=== PATIENT | female | born 1995 | race Caucasian/White ===

== ENCOUNTER 2021-08-29 07:47 | Emergency (ER) | payer BC ==
[~2021-08-29] VITALS: Ht 165.1 cm; Wt 106.8 kg
[2021-08-29 08:39] LABS: BILIRUBIN,URINE NEGATIVE (NEG); COLOR,URINE YELLOW; NITRITE,URINE POSITIVE (NEG); PH,URINE 7.5 (<5.0-8.0); PROTEIN,URINE NEGATIVE (NEG-TRACE); UROBILINOGEN,URINE 0.2 mg/dL (0.2 mg/dL)
--- NOTE | 2021-08-29 08:44 | PHYS DOC ---
Past Medical History Past Surgical History: No Surgical History General Adult EDM: Chief Complaint: BACK PAIN OR INJURY HPI: HPI: Patient is a 26 year old female who is 7 weeks , presented to ER for evaluation of right-sided lower back pain. Patient denies any injury. 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 Patient states she is 7 weeks , her last menstrual period was on 07/09/2021. This is her first . Patient denies any pelvic pain, no vaginal bleeding or discharge. Patient states she did a home test and it was positive so she went to the health department and they did another one to confirm it. Patient denies any bowel bladder incontinence. Review of Systems: Review of Systems: Constitutional: Denies fever or chills. [] Eyes: Denies change in visual acuity. [] HENT: Denies nasal congestion or sore throat. [] Respiratory: Denies cough or shortness of breath. [] Cardiovascular: Denies chest pain or edema. [] GI: Denies abdominal pain, nausea, vomiting, bloody stools or diarrhea. [] : Denies dysuria. [] Musculoskeletal: Positive for low back pain, no joint pain, Integument: Denies rash. [] Neurologic: Denies headache, focal weakness or sensory changes. [] Endocrine: Denies polyuria or polydipsia. [] Lymphatic: Denies swollen glands. [] Psychiatric: Denies depression or anxiety. [] Heart Score: C/O Chest Pain: N/A Risk Factors: Risk Factors: DM, Current or recent (<one month) smoker, HTN, HLP, family history of CAD, obesity. Risk Scores: Score 0 - 3: 2.5% MACE over next 6 weeks - Discharge Home Score 4 - 6: 20.3% MACE over next 6 weeks - Admit for Clinical Observation Score 7 - 10: 72.7% MACE over next 6 weeks - Early Invasive Strategies Physical Exam: PE: Constitutional: Well developed, well nourished, no acute distress, non-toxic appearance. [] HENT: Normocephalic, atraumatic, bilateral external ears normal, oropharynx moist, no oral exudates, nose normal. [] Eyes: PERRLA, EOMI, conjunctiva normal, no discharge. [] Neck: Normal range of motion, no tenderness, supple, no stridor. [] Cardiovascular:Heart rate regular rhythm, no murmur [] Lungs & Thorax: Bilateral breath sounds clear to auscultation [] Abdomen: Bowel sounds normal, soft, no tenderness, no masses, no pulsatile masses. [] Skin: Warm, dry, no erythema, no rash. [] Back: No tenderness, no CVA tenderness. No midline lumbar spine tenderness to palpation. The pain is more on the right paraspinous lumbar spinal muscle. Extremities: No tenderness, no cyanosis, no clubbing, ROM intact, no edema. [] Neurologic: Alert and oriented X 3, normal motor function, normal sensory function, no focal deficits noted. [] Psychologic: Affect normal, judgement normal, mood normal. [] Current Patient Data: Labs: Laboratory Tests Test 08/29/21 08:24 08/29/21 08:40 Urine Collection Type Unknown Urine Color Yellow Urine Clarity Cloudy Urine pH 7.5 Urine Specific [place] 1.020 Urine Protein Negative mg/dL Urine Glucose (UA) Negative mg/dL Urine Ketones (Stick) Negative mg/dL Urine Blood Negative Urine Nitrite Positive Urine Bilirubin Negative Urine Urobilinogen Dipstick 0.2 mg/dL Urine Leukocyte Esterase Trace Urine RBC 0 /HPF Urine WBC 1-4 /HPF Urine Bacteria Many /HPF Maternal Serum HCG Beta Subunit 95387 mIU/mL Vital Signs: Vital Signs Date Time Temp Pulse Resp B/P (MAP) Pulse Ox O2 Delivery O2 Flow Rate FiO2 08/29/21 07:55 98.2 88 20 139/63 (88) 100 Room Air 98.2 EKG: EKG: [] Radiology/Procedures: Radiology/Procedures: [][facility] [address] [place] [address] IMAGING REPORT Signed PATIENT: KIMBERLI CARRANZA GACCOUNT: [id number] : 1995 LOCATION: ER AGE: 26 SEX: F EXAM STATUS: REG ER ORD. PHYSICIAN: MANUEL JOHNSON DO REASON: lower back pain, pelvic pain, 7 weeks ; Beta HCG 37,552 PROCEDURE: OB < 14 WKS US OB <14 WKS +TV DATE: 08/29/2021 9:45 AM INDICATION: lower back pain, pelvic pain, 7 weeks ; Beta HCG 37,552 . LMP 07/09/2021. COMPARISON: None. TECHNIQUE: Transabdominal ultrasonography of the pelvis was performed. Color Doppler and duplex were utilized as appropriate. FINDINGS: The uterus measures 8 x 6 x 5.2 cm. Cervix measures 3.36 cm in length. There is living intrauterine gestation with heart rate of 125 beats per minute. There is small yolk sac present. Gestational sac is normal in morphology. No perigestational fluid. [place]-rump length measurement of 0.83 cm corresponds with estimated ultrasound gestational age of 6 weeks and 6 days. There is no free pelvic fluid. The right ovary measures 2.4 x 2.0 x 1.5 cm. The left ovary measures 2.4 x 2.1 x 1.5 cm. No evidence of ovarian torsion. There is normal blood flow to both ovaries by color Doppler with arterial and venous waveforms detected. IMPRESSION: 1. Single living intrauterine gestation. 2. [place]-rump length corresponds with estimated ultrasound gestational age of 6 weeks and 6 days, for JOSEFINA 04/18/2022. Electronically signed by: Estefanía Salinas MD (08/29/2021 10:53 AM) [id number] DICTATED and SIGNED BY: ESTEFANÍA SALINAS MD DATE: 08/29/21 [id number] Course & Med Decision Making: Course & Med Decision Making Pertinent Labs and Imaging studies reviewed. (See chart for details) Patient is a 26-year-old for who present to ER due to low back pain. Patient had 7 weeks , ultrasound of the pelvic show 6-week 6-day IUP, her lab work showed she had a urinary tract infection. Patient be discharged home with antibiotic. Patient will need to follow-up with [facility] for outpatient care. Dragon Disclaimer: Dragon Disclaimer: This electronic medical record was generated, in whole or in part, using a voice recognition dictation system. Departure Departure Impression: Primary Impression: UTI (urinary tract infection) Additional Impression: Disposition: HOME / SELF CARE / HOMELESS Condition: STABLE Referrals: NO PCP (PCP) JACQUELINE PELAEZ MD Please call this [facility] doctor for outpatient for follow up next week. Patient Instructions: Back Pain in , Urinary Tract Infection Additional Instructions: Thank you for visiting our Emergency Department. We appreciate you trusting us with your care. If any additional problems come up don't hesitate to return to visit us. Please follow up with your primary care provider so they can plan additional care if needed and know about the problem that you had. If symptoms worsen come back to the Emergency Department. Any concerning symptoms that start such as chest pain, shortness of air, weakness or numbness on one side of the body, running high fevers or any other concerning symptoms return to the ER. Scripts Cephalexin (KEFLEX) 500 Mg Capsule 1 CAP PO QID for 7 Days, #28 CAP Prov: MANUEL JOHNSON DO 08/29/21 MANUEL JOHNSON DO Aug 29, 2021 08:44
[2021-08-29 08:52] LABS: BACTERIA,URINE MANY /HPF (0-FEW); CLARITY,URINE CLOUDY; RBC,URINE 0 /HPF (0-2)
--- NOTE | 2021-08-29 10:56 | RAD ---
US OB <14 WKS +TV DATE: 08/29/2021 9:45 AM INDICATION: lower back pain, pelvic pain, 7 weeks ; Beta HCG 37,552 . LMP 07/09/2021. COMPARISON: None. TECHNIQUE: Transabdominal ultrasonography of the pelvis was performed. Color Doppler and duplex were utilized as appropriate. FINDINGS: The uterus measures 8 x 6 x 5.2 cm. Cervix measures 3.36 cm in length. There is living intrauterine gestation with heart rate of 125 beats per minute. There is small yolk s ac present. Gestational sac is normal in morphology. No perigestational fluid. [place]-rump length measurement of 0.83 cm corresponds with estimated ultrasound gestational age of 6 w eeks and 6 days. There is no free pelvic fluid. The right ovary measures 2.4 x 2.0 x 1.5 cm. The left ovary measures 2.4 x 2.1 x 1.5 cm. No evidence of ovarian torsion. There is normal blood flow to both ovaries by color Doppler with arterial and tala ous waveforms detected. IMPRESSION: 1. Single living intrauterine gestation. 2. [place]-rump length corresponds with estimated ultrasound gestational age of 6 weeks and 6 days, for JOSEFINA 04/18/2022. Electronically signed by: Yrn Salinas MD (08/29/2021 10:53 AM) [id number]
[2021-08-29] MEDS ORDERED: CEPH500C PO (11:14)
[2021-08-29 11:33] VITALS: BP 134/71
== END 2021-08-29 11:34 | disposition home or self-care (01) ==
LOC: ER 07:47
DX: O23.41 Unspecified infection of urinary tract in pregnancy, first trimester (principal); Z3A.01 Less than 8 weeks gestation of pregnancy
CPT/HCPCS: 36415; 76801; 81001; 84702; 87077; 87086; 87186; 99284-25

== ENCOUNTER 2021-09-21 21:52 | Emergency (ER) | payer BC ==
[~2021-09-21] VITALS: Ht 165.1 cm; Wt 109.0 kg
[~2021-09-21 21:52] MED LIST: CEPH500C PO
[2021-09-21] MEDS ORDERED: AZIT500T4 PO (22:13)
--- NOTE | 2021-09-21 22:13 | PHYS DOC ---
Past Medical History Past Surgical History: No Surgical History General Adult EDM: Chief Complaint: SORE THROAT HPI: HPI: Patient is a 26 year old female presents with a chief complaint of sore throat for the last several days. Patient states symptoms of progressively become worse since onset. Patient's pain initially started on the right side now is primarily on the left. Patient also states she has discomfort that radiates to her left ear. Patient denies any fever chills runny nose stuffy nose cough congestion. Patient was concerned that she may have a salivary stone. Advised less likely due to painful swallowing and the fact that symptoms were initially bilateral. Discussed testing for strep and Covid joint decision against. Patient symptoms most likely viral etiology. Did treat patient with Decadron and did prescribe patient Zithromax for possible bacterial cause. Review of Systems: Review of Systems: Constitutional: Denies fever or chills. [] Eyes: Denies change in visual acuity. [] HENT: Denies nasal congestion Positive sore throat. [] Respiratory: Denies cough or shortness of breath. [] Cardiovascular: Denies chest pain or edema. [] GI: Denies abdominal pain, nausea, vomiting, bloody stools or diarrhea. [] : Denies dysuria. [] Musculoskeletal: Denies back pain or joint pain. [] Integument: Denies rash. [] Neurologic: Denies headache, focal weakness or sensory changes. [] Endocrine: Denies polyuria or polydipsia. [] Lymphatic: Denies swollen glands. [] Psychiatric: Denies depression or anxiety. [] Heart Score: C/O Chest Pain: N/A Risk Factors: Risk Factors: DM, Current or recent (<one month) smoker, HTN, HLP, family history of CAD, obesity. Risk Scores: Score 0 - 3: 2.5% MACE over next 6 weeks - Discharge Home Score 4 - 6: 20.3% MACE over next 6 weeks - Admit for Clinical Observation Score 7 - 10: 72.7% MACE over next 6 weeks - Early Invasive Strategies Allergies: Allergies: Allergies Coded Allergies Type Severity Reaction Last Updated Verified No Known Drug Allergies 09/21/21 No Physical Exam: PE: Constitutional: Well developed, well nourished, no acute distress, non-toxic appearance. [] HENT: Normocephalic, atraumatic, bilateral external ears normal, oropharynx moist, no oral exudates, nose normal. [Positive pharyngeal erythema] Eyes: PERRLA, EOMI, conjunctiva normal, no discharge. [] Neck: Normal range of motion, no tenderness, supple, no stridor. [] Cardiovascular:Heart rate regular rhythm, no murmur [] Lungs & Thorax: Bilateral breath sounds clear to auscultation [] Abdomen: Bowel sounds normal, soft, no tenderness, no masses, no pulsatile masses. [] Skin: Warm, dry, no erythema, no rash. [] Back: No tenderness, no CVA tenderness. [] Extremities: No tenderness, no cyanosis, no clubbing, ROM intact, no edema. [] Neurologic: Alert and oriented X 3, normal motor function, normal sensory function, no focal deficits noted. [] Psychologic: Affect normal, judgement normal, mood normal. [] EKG: EKG: [] Radiology/Procedures: Radiology/Procedures: [] Course & Med Decision Making: Course & Med Decision Making Pertinent Labs and Imaging studies reviewed. (See chart for details) [] Dragon Disclaimer: Dragon Disclaimer: This electronic medical record was generated, in whole or in part, using a voice recognition dictation system. Departure Departure Impression: Primary Impression: Acute pharyngitis Disposition: HOME / SELF CARE / HOMELESS Condition: STABLE Referrals: NO PCP (PCP) Patient Instructions: Viral and Bacterial Pharyngitis Scripts Azithromycin (AZITHROMYCIN TABLET) 500 Mg Tablet 1 TAB PO DAILY for 5 Days, #5 TAB 0 Refills Prov: PRIETO MALCOLM DO 09/21/21 PRIETO MALCOLM DO Sep 21, 2021 22:13
[2021-09-21] MEDS ORDERED: DEXAMETHASONE 4 MG TABLET PO ONE (22:15)
== END 2021-09-21 22:20 | disposition home or self-care (01) ==
LOC: ER 21:52
DX: J02.9 Acute pharyngitis, unspecified (principal)
CPT/HCPCS: 99283

== ENCOUNTER 2021-09-24 16:55 | Emergency (ER) | payer BC ==
[~2021-09-24] VITALS: Ht 165.1 cm; Wt 109.1 kg
[~2021-09-24 16:55] MED LIST changes: +AZIT500T4 PO
[2021-09-24] MEDS ORDERED: ACETAMINOPHEN 500 MG TABLET PO ONE (17:30)
--- NOTE | 2021-09-24 17:37 | PHYS DOC ---
Past Medical History Past Medical History: No Pertinent History Past Surgical History: No Surgical History Smoking Status: Never Smoker Alcohol Use: None General Adult EDM: Chief Complaint: SORE THROAT HPI: HPI: Patient is a 26 year old female who presents with sore throat. Patient was seen here in the emergency department 3 days ago for similar complaints. At that time, she was given a dose of steroid and a Z-Chilo. She reports she did feel better after the steroid administration, but the pain is returned. Patient reports associated painful swallowing of solids and fluids, though she is able to tolerate her own secretions. She reports that the pain is mostly left-sided and radiates to her left ear. Patient reports she is 10 weeks , so has not taken ibuprofen. Review of Systems: Review of Systems: Constitutional: Denies fever, chills or generalized weakness Eyes: Denies change in visual acuity, visual field deficits or discharge HENT: See HPI Respiratory: Denies cough or shortness of breath Cardiovascular: Denies chest pain, palpitations or edema GI: Denies abdominal pain, nausea, vomiting, bloody stools or diarrhea : Denies dysuria or hematuria Musculoskeletal: Denies back pain or joint pain Integument: Denies rash or other skin lesion Neurologic: Denies headache, focal weakness or sensory changes Heart Score: C/O Chest Pain: No Current Medications: Current Medications Medications (Trade) Dose Ordered Sig/Casie Start Time Stop Time Status Last Admin Dose Admin Acetaminophen (Tylenol) 1,000 mg 1X ONCE 09/24/21 17:30 09/24/21 17:31 Allergies: Allergies: Allergies Coded Allergies Type Severity Reaction Last Updated Verified No Known Drug Allergies 09/21/21 No Physical Exam: PE: Constitutional: Well developed, well nourished, no acute distress, non-toxic appearance. HENT: Normocephalic, atraumatic, bilateral external ears normal, oropharynx moist, white exudates on tonsils bilaterally, tonsils 3+ bilaterally, uvula midline, nose normal. Eyes: EOMI, conjunctiva normal, no discharge. Neck: Normal range of motion, tonsillar and submandibular lymphadenopathy ap preciated bilaterally, no stridor. Skin: Warm, dry, no erythema, no rash. Extremities: No obvious deformity, no cyanosis, no clubbing, ROM intact, no edema. Neurologic: Alert and oriented x4, steady and symmetrical upright gait, no focal deficits noted. Current Patient Data: Labs: Laboratory Tests Test 09/24/21 17:41 Heterophil Agglutinins Negative (NEGATIVE) Rapid strep negative Vital Signs: Vital Signs Date Time Temp Pulse Resp B/P (MAP) Pulse Ox O2 Delivery O2 Flow Rate FiO2 09/24/21 18:36 94 20 114/68 (83) 100 Room Air 09/24/21 17:08 98.2 92 18 141/91 (108) 100 Room Air 98.2 Course & Med Decision Making: Course & Med Decision Making Pertinent Labs and Imaging studies reviewed. (See chart for details) Patient is a 26-year-old female who presents with persistent sore throat. Patient was evaluated here in the emergency department 3 days ago and was treated with a Z-Chilo and and dexamethasone. Patient states that she did feel better after the steroid, but the pain is returned. Did perform strep and Monospot testing today. As the patient is currently in her first trimester , medications are limited. She is advised to take Tylenol and use other supportive treatment measures for her sore throat. Return precautions were provided. ENT follow-up contact information also provided. Patient understands and is agreeable to discharge plan. [employer] Disclaimer: [employer] Disclaimer: This electronic medical record was generated, in whole or in part, using a voice recognition dictation system. Departure Departure Impression: Primary Impression: Acute pharyngitis Qualified Codes: J02.9 - Acute pharyngitis, unspecified Additional Impression: First trimester Disposition: HOME / SELF CARE / HOMELESS Condition: STABLE Referrals: NO PCP (PCP) WINSOME CASE MD Patient Instructions: Tonsillitis, [id number] Additional Instructions: EMERGENCY DEPARTMENT GENERAL DISCHARGE INSTRUCTIONS Thank you for coming to [facility] Emergency Department (ED) today and trusting us with you care. We trust that you had a positive experience in our Emergency Department. If you wish to speak to the department management, you may call the director at . YOUR FOLLOW UP INSTRUCTIONS ARE FOLLOWS: 1. Follow up with your primary care doctor. If you do not have a primary doctor, please ask for a resource list of physicians or clinics that may be able to assist you with follow up care. 2. The emergency provider has interpreted your imaging studies, if any were ordered. The radiology document imaging specialist also reviewed them. If there is a change in the findings, you will be notified in 48 hours when at all possible. 3. If a lab test or culture has been done, your results will be reviewed and you will be notified if you need a change in treatment. 4. Follow instructions verbalized to you and refer to the printouts if needed. ADDITIONAL INSTRUCTIONS AND INFORMATION: 1. Your care today has been supervised by a physician who is specially trained in emergency care. Many problems require more than one evaluation for a complete diagnosis and treatment. We recommend that you schedule your follow up appointment as recommended to ensure complete treatment of you illness or injury. If you are unable to obtain follow up care and continue to have a problem, or if your condition worsens, we recommend that you return to the ED. 2. We are not able to safely determine your condition over the phone nor are we able to give sound medical advice over the phone. For these safety reasons, if you call for medical advice we will ask you to come to the ED for further evaluation. 3. If you have any questions regarding these discharge instructions please call the ED at . SAFETY INFORMATION: In the interest of safety, wellness, and injury prevention; we encourage you to wear your seat belt, if you smoke; quite smoking, and we encourage family to use a protective helmet for bicycling and other sporting events that present an increased risk for head injury. IF YOUR SYMPTOMS WORSEN OR NEW SYMPTOMS DEVELOP, OR YOU HAVE CONCERNS ABOUT YOUR CONDITION; OR IF YOUR CONDITION WORSENS WHILE YOU ARE WAITING FOR YOUR FOLLOW UP APPOINTMENT; EITHER CONTACT YOUR PRIMARY CARE DOCTOR, THE PHYSICIAN WHOSE NAME A ND NUMBER YOU WERE GIVEN, OR RETURN TO THE ED IMMEDIATELY. FERNANDO HOUGH Sep 24, 2021 17:37
[2021-09-24 18:01] LABS: MONONUCLEOSIS PATIENT NEGATIVE (NEGATIVE)
[2021-09-24 18:36] VITALS: BP 114/68
== END 2021-09-24 18:38 | disposition home or self-care (01) ==
LOC: ER 16:55
DX: O26.891 Other specified pregnancy related conditions, first trimester (principal); J02.9 Acute pharyngitis, unspecified; Z3A.10 10 weeks gestation of pregnancy
CPT/HCPCS: 86308; 87070; 87147; 87880; 99283

== ENCOUNTER 2021-09-28 23:32 | Emergency (ER) | payer BC ==
[~2021-09-28] VITALS: Ht 165.1 cm; Wt 109.1 kg
--- NOTE | 2021-09-28 23:53 | PHYS DOC ---
Past Medical History Past Medical History: No Pertinent History (TAYO FERNANDES APRN) Past Surgical History: No Surgical History (TAYO FERNANDES APRN) Smoking Status: Never Smoker Alcohol Use: None (TAYO FERNANDES APRN) General Adult EDM: Chief Complaint: SORE THROAT HPI: HPI: Patient is a 26 year old female who presents with worsening sore throat and swelling. Patient has been here 3 times now for this. She is 11 weeks . The first time she was here they gave a one-time dose of a steroid and they put her on antibiotic. She just finished an antibiotic. She had an appointment with her OB doctor and they checked her throat but it was not this bad. She denies fever, shortness of breath, abdominal pain, vaginal bleeding, abnormal vaginal discharge, vomiting, body aches, headache, dizziness, chest pain. Rates her discomfort a 9 out of 10. (TAYO FERNANDES APRN) Review of Systems: Review of Systems: Constitutional: Denies fever or chills. [] Eyes: Denies change in visual acuity. [] HENT: Denies nasal congestion or +sore throat. + Throat swelling [] Respiratory: Denies cough or shortness of breath. [] Cardiovascular: Denies chest pain or edema. [] GI: Denies abdominal pain, nausea, vomiting, bloody stools or diarrhea. [] : Denies dysuria. [] Musculoskeletal: Denies back pain or joint pain. [] Integument: Denies rash. [] Neurologic: Denies headache, focal weakness or sensory changes. [] Endocrine: Denies polyuria or polydipsia. [] Lymphatic: Denies swollen glands. [] Psychiatric: Denies depression or anxiety. [] (TAYO FERNANDES APRN) Heart Score: C/O Chest Pain: No (TAYO FERNANDES APRN) Current Medications: Current Medications Medications (Trade) Dose Ordered Sig/Casie Start Time Stop Time Status Last Admin Dose Admin Sodium Chloride 1,000 ml @ 1,000 mls/hr 1X ONCE 09/29/21 00:00 09/29/21 00:59 (TAYO FERNANDES APRN) Allergies: Allergies: Allergies Coded Allergies Type Severity Reaction Last Updated Verified No Known Drug Allergies 09/21/21 No (TAYO FERNANDES APRN) Physical Exam: PE: Constitutional: Well developed, well nourished, no acute distress, non-toxic appearance. [] HENT: Normocephalic, atraumatic, bilateral external ears normal, oropharynx moist, no oral exudates, nose normal. 3+ tonsil swelling but uvula is still midline. I do not see a abscess at this time. There is no exudates. Still swallowing saliva. no trismus. [] Eyes: PERRLA, EOMI, conjunctiva normal, no discharge. [] Neck: Normal range of motion, no tenderness, supple, no stridor. [] Cardiovascular:Heart rate regular rhythm, no murmur [] Lungs & Thorax: Bilateral breath sounds clear to auscultation [] Abdomen: Bowel sounds normal, soft, no tenderness, no masses, no pulsatile masses. [] Skin: Warm, dry, no erythema, no rash. [] Back: No tenderness, no CVA tenderness. [] Extremities: No tenderness, no cyanosis, no clubbing, ROM intact, no edema. [] Neurologic: Alert and oriented X 3, normal motor function, normal sensory function, no focal deficits noted. [] Psychologic: Affect normal, judgement normal, mood normal. [] (TAYO FERNANDES APRN) Current Patient Data: Vital Signs: Vital Signs Date Time Temp Pulse Resp B/P (MAP) Pulse Ox O2 Delivery O2 Flow Rate FiO2 09/28/21 23:44 98.2 100 16 139/97 (111) 99 Room Air 98.2 (TAYO FERNANDES APRN) EKG: EKG: [] (TAYO FERNANDES APRN) Radiology/Procedures: Radiology/Procedures: [] (TAYO FERNANDES APRN) Radiology/Procedures: [facility] [address] [place], [place] [id number] IMAGING REPORT Addendum PATIENT: KIMBERLI CARRANZA GACCOUNT: [id number] : 1995 LOCATION: ER AGE: 26 SEX: F EXAM STATUS: REG ER ORD. PHYSICIAN: TAYO FERNANDES APRN REASON: worsening throat pain and swelling, OMNI 300 70 ML IV PROCEDURE: CT SOFT TISSUE NECK W/CONTRAST ADDENDUM ADDENDUM #1 Addendum: A hypodense tonsillar neoplastic mass lesion contributing to enlargement of the tonsil is not excluded. Follow-up will be of benefit to document that this resolves over time. Electronically signed by: Charbel Castro MD (09/29/2021 1:46 AM) [facility] neck with contrast PQRS statement: CT scans at this facility use dose reduction including either automated exposure control, iterative reconstructions, and /or weight based radiation dosing via mA and kV modification when appropriate to reduce radiation dose to as low as reasonably achievable. HISTORY: Worsening throat pain and swelling. Contrast: 70 mL Omnipaque 300 intravenous contrast. FINDINGS: 3 mm right upper lobe nodule image 3. There is asymmetric enlargement of the right palatine tonsil and indistinct hypodensity which measures 1.5 cm th ere is no rim-enhancing focus to confirm an abscess, findings consistent with tonsillitis, the hypodensity likely represents focal tonsillar edema, very early organizing peritonsillar abscess is not excluded although is less likely given the absence of rim enhancement. This mildly narrows the airway. No enlarged epiglottis and no mucosal thickening or narrowing of the larynx. There is bilateral mild jugular chain adenopathy with lymph nodes measuring up 1.5 cm at level 2 and 3 of the jugular chains. Salivary glands, thyroid gland, bones unremarkable. IMPRESSION: 1. Enlargement of the right palatine tonsil with a indistinct 1.5 cm hypodense lesion, with mild narrowing of the airway, consistent with right-sided tonsillitis. The hypodensity likely represents focal tonsillar edema. No rim- enhancing peritonsillar abscess is evident. See above. 2. Mild bilateral jugular chain adenopathy. 3. 3 mm right upper lobe pulmonary nodule. Per Fleischner guidelines if the patient has risk factors for malignancy proximal CT chest imaging follow-up in 12 months should be considered, otherwise no follow-up is necessary. Electronically signed by: Charbel Castro MD (09/29/2021 1:37 AM) [facility] DICTATED AND SIGNED BY: CHARBEL CASTRO MD DATE: 09/29/21 0145 CC: TAYO FERNANDES APRN; NO PCP; NON,STAFF ~ CT neck with contrast PQRS statement: CT scans at this facility use dose reduction including either automated exposure control, iterative reconstructions, and /or weight based radiation dosing via mA and kV modification when appropriate to reduce radiation dose to as low as reasonably achievable. HISTORY: Worsening throat pain and swelling. Contrast: 70 mL Omnipaque 300 intravenous contrast. FINDINGS: 3 mm right upper lobe nodule image 3. There is asymmetric enlargement of the right palatine tonsil and indistinct hypodensity which measures 1.5 cm there is no rim-enhancing focus to confirm an abscess, findings consistent with tonsillitis, the hypodensity likely represents focal tonsillar edema, very early organizing peritonsillar abscess is not excluded although is less likely given the absence of rim enhancement. This mildly narrows the airway. No enlarged epiglottis and no mucosal thickening or narrowing of the larynx. There is bilateral mild jugular chain adenopathy with lymph nodes measuring up 1.5 cm at level 2 and 3 of the jugular chains. Salivary glands, thyroid gland, bones unremarkable. IMPRESSION: 1. Enlargement of the right palatine tonsil with a indistinct 1.5 cm hypodense lesion, with mild narrowing of the airway, consistent with right-sided tonsillitis. The hypodensity likely represents focal tonsillar edema. No rim- enhancing peritonsillar abscess is evident. See above. 2. Mild bilateral jugular chain adenopathy. 3. 3 mm right upper lobe pulmonary nodule. Per Fleischner guidelines if the patient has risk factors for malignancy proximal CT chest imaging follow-up in 12 months should be considered, otherwise no follow-up is necessary. Electronically signed by: Charbel Castro MD (09/29/2021 1:37 AM) [facility] DICTATED and SIGNED BY: CHARBEL CASTRO MD DATE: 09/29/21 [id number] (ONEAL RIZO MD) Course & Med Decision Making: Course & Med Decision Making Pertinent Labs and Imaging studies reviewed. (See chart for details) See HPI. Alert and oriented x4. Ambulatory with steady gait. Speaks in full clear sentences. Patient came back negative for mono and strep again on the ninth of this month. I am going to check her for strep again and chlamydia and gonorrhea of the throat. Uvula is midline but her tonsils are almost touching now. No exudates. No trismus. Swallowing her saliva. I have spoken to Dr. Rizo and she agrees the patient should get a CT soft tissue neck to rule out anything more emergent. 0121: Patients culture came back positive for strep but she had been given azithromycin for her first abx. This did not work, hince she has worsened. I have order a one time dose of dexamethasone in ED and 1st dose of Amoxicillin. Patient signed over to Dr Rizo. [] (TAYO FERNANDES APRN) Dragon Disclaimer: Kimberly Disclaimer: This electronic medical record was generated, in whole or in part, using a voice recognition dictation system. (TAYO FERNANDES APRN) Departure Departure Impression: Primary Impression: Acute pharyngitis Disposition: HOME / SELF CARE / HOMELESS Condition: STABLE Referrals: NO PCP (PCP) Patient Instructions: Sore Throat Scripts Acetaminophen With Codeine (ACETAMINOPHEN-COD #3 TABLET) 1 Each Tablet 1 TAB PO PRN Q6HRS PRN for PAIN for 3 Days, #10 TAB Prov: ONEAL RIZO MD 09/29/21 Penicillin V Potassium (PENICILLIN V POTASSIUM) 500 Mg Tablet 1 TAB PO Q12HR for antibiotic for 10 Days, #20 TAB Prov: ONEAL RIZO MD 09/29/21 TAYO FERNANDES APRN Sep 28, 2021 23:53 ONEAL RIZO MD Sep 29, 2021 02:26
[2021-09-29] MEDS ORDERED: IV NORMAL SALINE 1000ML BAG 1,000 ML IV ONE
[2021-09-29 00:28] LABS: BASO % 0 % (0-3); EOS # 0.2 x10^3/uL (0.0-0.7); EOS % 1 % (0-3); HEMATOCRIT 35.8 % (36.0-47.0); HEMOGLOBIN 12.1 g/dL (12.0-15.5); LYMPH # 1.7 x10^3/uL (1.0-4.8); LYMPH % 10 % (24-48); MEAN CORPUSCULAR HEMOGLOBIN 30 pg (25-35); MEAN CORPUSCULAR HGB CONC 34 g/dL (31-37); MEAN CORPUSCULAR VOLUME 89 fL (79-100); MONO # 1.2 x10^3/uL (0.0-1.1); MONO % 7 % (0-9); NEUT # 13.5 x10^3/uL (1.8-7.7); NEUT % 82 % (31-73); PLATELET COUNT 311 x10^3/uL (140-400); RED BLOOD COUNT 4.01 x10^6/uL (3.50-5.40); RED CELL DISTRIBUTION WIDTH 12.5 % (11.5-14.5); WHITE BLOOD COUNT 16.6 x10^3/uL (4.0-11.0)
[2021-09-29 00:58] LABS: CALCIUM 8.7 mg/dL (8.5-10.1); CREATININE 0.6 mg/dL (0.6-1.0); GFR 120.8; POTASSIUM 3.9 mmol/L (3.5-5.1)
[2021-09-29 01:03] LABS: ALBUMIN 3.1 g/dL (3.4-5.0); ALBUMIN/GLOBULIN RATIO 0.6 (1.0-1.7); TOTAL BILIRUBIN 0.5 mg/dL (0.2-1.0); TOTAL PROTEIN 7.9 g/dL (6.4-8.2)
[2021-09-29] MEDS ORDERED: CONTRAST GIVEN. MC PRN (01:30)
--- NOTE | 2021-09-29 01:39 | RAD ---
CT neck with contrast PQRS statement: CT scans at this facility use dose reduction including either automated exposure cont rol, iterative reconstructions, and /or weight based radiation dosing via mA and kV modification when appropriate to reduce radiation dose to as low as reasonably achievable. HISTORY: Worsening throat pain and swelling. Contrast: 70 mL Omnipaque 300 intravenous contrast. FINDINGS: 3 mm right upper lobe nodule image 3. There is asymmetric enlargement of the right palatine tonsil and indistinct hypodensity which measures 1.5 cm there is no rim-enhancing focus to confirm a n abscess, findings consistent with tonsillitis, the hypodensity likely represents focal tonsillar ed kimberly, very early organizing peritonsillar abscess is not excluded although is less likely given the ab sence of rim enhancement. This mildly narrows the airway. No enlarged epiglottis and no mucosal thick ening or narrowing of the larynx. There is bilateral mild jugular chain adenopathy with lymph nodes m easuring up 1.5 cm at level 2 and 3 of the jugular chains. Salivary glands, thyroid gland, bones unre markable. IMPRESSION: 1. Enlargement of the right palatine tonsil with a indistinct 1.5 cm hypodense lesion, with mild narr owing of the airway, consistent with right-sided tonsillitis. The hypodensity likely represents focal tonsillar edema. No rim-enhancing peritonsillar abscess is evident. See above. 2. Mild bilateral jugular chain adenopathy. 3. 3 mm right upper lobe pulmonary nodule. Per Fleischner guidelines if the patient has risk factors for malignancy proximal CT chest imaging follow-up in 12 months should be considered, otherwise no fo llow-up is necessary. Electronically signed by: Nitin Castro MD (09/29/2021 1:37 AM) [facility]
[2021-09-29] MEDS ORDERED: DEXAMETHASONE 4 MG TABLET PO ONE (02:00)
[2021-09-29] MEDS ORDERED: AMOXICILLIN 250 MG CAPSULE. PO ONE (02:00)
[2021-09-29] MEDS ORDERED: IOHEXOL 300 MG/ML 100ML VIAL. IV ONE (02:00)
[2021-09-29] MEDS ORDERED: PENI500T PO (02:24)
[2021-09-29] MEDS ORDERED: ACET1TAB33 PO (02:24)
[2021-09-29 02:47] VITALS: BP 116/53
[2021-09-29] MEDS ORDERED: BENZOCAINE ONE 20% MUCOSAL SPRAY. MM (03:00)
[2021-10-01 00:17] LABS: GC PROBE Negative (Negative)
== END 2021-09-29 03:00 | disposition home or self-care (01) ==
LOC: ER 23:32
DX: O99.511 Diseases of the respiratory system complicating pregnancy, first trimester (principal); J02.9 Acute pharyngitis, unspecified; Z3A.11 11 weeks gestation of pregnancy
CPT/HCPCS: 70491; 80053; 85025; 87070; 87491; 87591; 87880; 96360; 99285; J7030; Q9967